=== PATIENT | female | born 1940 | race Caucasian/White ===

== ENCOUNTER 2018-05-26 01:49 | Outpatient (CLI) | payer MEDICARE, SELFPAY ==
[2018-05-26 10:55] LABS: ALT 28 U/L (12-78); AST 18 U/L (15-37); Albumin 3.9 g/dL (3.4-5.0); Alkaline Phosphatase 122 U/L (46-116); Anion Gap 9.4 mmol/L (3-11); BUN 12 mg/dL (7-18); Bilirubin, Total 0.6 mg/dL (0.2-1.0); CO2 30.6 mmol/L (21.0-32.0); CREATININE 0.76 mg/dL (0.55-1.02); Calcium 9.7 mg/dL (8.5-10.1); Chloride 105 mmol/L (98-107); Cholesterol 231 mg/dL (50-200); Glucose 124 mg/dL (70-100); HDL Cholesterol 48 mg/dL (40-60); LDL CHOLESTEROL 132 mg/dL (<100); Potassium 3.8 mmol/L (3.5-5.1); Sodium 145 mmol/L (136-145); Total Protein 7.7 g/dL (6.4-8.2); Triglyceride 252 mg/dL (30-150)
== END 2018-05-26 02:09 ==
PROVIDERS: PCP Family Medicine; Visit Provider Family Medicine
DX: E78.5 Hyperlipidemia, unspecified (principal); I10 Essential (primary) hypertension
CPT/HCPCS: 36415; 80053; 80061; 83721

== ENCOUNTER 2020-05-24 07:45 | Outpatient (CLI) | payer MEDICARE, SELFPAY ==
[2020-05-24 12:15] LABS: ALT 30 U/L (14-59); AST 21 U/L (15-37); Albumin 4.1 g/dL (3.4-5.0); Alkaline Phosphatase 151 U/L (46-116); Anion Gap 10.7 mmol/L (3-11); BUN 13 mg/dL (7-18); Bilirubin, Total 0.4 mg/dL (0.2-1.0); CO2 30.3 mmol/L (21.0-32.0); CREATININE 0.7 mg/dL (0.55-1.02); Calcium 9.7 mg/dL (8.5-10.1); Calculated LDL 169 mg/dL (<100); Chloride 104 mmol/L (98-107); Cholesterol 262 mg/dL (<200); Glucose 108 mg/dL (74-106); HDL Cholesterol 52 mg/dL (40-60); Sodium 145 mmol/L (136-145); Total Protein 7.8 g/dL (6.4-8.2); Triglyceride 207 mg/dL (<150)
== END 2020-05-24 07:46 | disposition home or self-care (01) ==
LOC: LOS 07:52
PROVIDERS: PCP Family Medicine; Visit Provider Family Medicine
DX: E78.5 Hyperlipidemia, unspecified (principal); I10 Essential (primary) hypertension
CPT/HCPCS: 36415; 80053; 80061

== ENCOUNTER 2021-06-25 01:27 | Outpatient (CLI) | payer MEDICARE, SELFPAY ==
[2021-06-25 13:24] LABS: ALT 21 U/L (14-59); Anion Gap 5.9 mmol/L (3-11); BUN 13 mg/dL (7-18); CO2 31.1 mmol/L (21.0-32.0); CREATININE 0.8 mg/dL (0.55-1.02); Calcium 9.5 mg/dL (8.5-10.1); Chloride 106 mmol/L (98-107); Glucose 109 mg/dL (74-106); Potassium 4.4 mmol/L (3.5-5.1); Sodium 143 mmol/L (136-145)
[2021-06-25 13:48] LABS: Calculated LDL 120 mg/dL (<100); Cholesterol 206 mg/dL (<200); HDL Cholesterol 52 mg/dL (40-60); Triglyceride 172 mg/dL (<150)
== END 2021-06-25 01:28 | disposition home or self-care (01) ==
LOC: LOS 01:27
PROVIDERS: PCP Nurse Practitioner; Visit Provider Family Medicine
DX: E78.5 Hyperlipidemia, unspecified (principal); I10 Essential (primary) hypertension
CPT/HCPCS: 36415; 80048; 80061; 84460

== ENCOUNTER 2023-07-30 01:16 | Outpatient (CLI) | payer MEDICARE, SELFPAY ==
[2023-07-30 12:09] LABS: HCT 45.6 % (36.0-46.0); HGB 14.2 g/dL (11.2-15.7); MCH 28.2 pg (27.0-33.0); MCHC 31.1 % (32.0-36.0); MCV 91 fL (80-95); MPV 11.8 fL (8.0-11.0); Platelet Count 230 10^3/uL (130-400); RBC 5.03 10^6/uL (3.93-5.22); RDW 13.8 % (11.7-14.6); RDW-SD 46.1 fL; WBC 5.68 10^3/uL (4.4-10.8)
[2023-07-30 12:17] LABS: Anion Gap 10.8 mmol/L (3-11); BUN 15 mg/dL (7-18); CO2 28.2 mmol/L (21.0-32.0); CREATININE 0.9 mg/dL (0.55-1.02); Calcium 9.8 mg/dL (8.5-10.1); Calculated LDL 118 mg/dL (<100); Chloride 104 mmol/L (98-107); Cholesterol 203 mg/dL (<200); Estimated GFR 64.23 (mL/min/1.73m2); Glucose 127 mg/dL (74-106); HDL Cholesterol 65 mg/dL (40-60); Potassium 3.3 mmol/L (3.5-5.1); Sodium 143 mmol/L (136-145); Triglyceride 104 mg/dL (<150)
[2023-07-30 12:42] LABS: Hemoglobin A1C 5.7 % (<5.7)
== END 2023-07-30 01:17 | disposition home or self-care (01) ==
PROVIDERS: PCP Nurse Practitioner Family; Referring Provider Nurse Practitioner Family; Visit Provider Nurse Practitioner Family
DX: I10 Essential (primary) hypertension (principal); Z00.00 Encounter for general adult medical examination without abnormal findings; E78.5 Hyperlipidemia, unspecified; R73.09 Other abnormal glucose
CPT/HCPCS: 36415; 80048; 80061; 85027; 83036